=== PATIENT | female | born 1955 | race Caucasian/White ===

== ENCOUNTER 2025-03-16 07:56 | Emergency (ER) | payer OTHER, SELFPAY ==
[2025-03-16 08:00] VITALS: BP 148/81
[2025-03-16 08:32] VITALS: BMI 38.5
[2025-03-16] MEDS: ZOFRAN 4 MG IV (08:46)
[2025-03-16] MEDS: TORADOL 15 MG IV ×2 (08:46→13:13)
[2025-03-16] MEDS: NSS 1000 IV (08:47)
[2025-03-16 08:51] LABS: Hematocrit 38.9 % (37.0-47.0); Hemoglobin 13.4 g/dL (12.0-16.0); Mean Corp Hgb Conc. 34.4 g/dL (33.0-37.0); Mean Corpuscular Volume 82.6 fL (81.0-99.0); Nucleated Red Blood Cells % 0 %; Platelet Count 269 10^3/uL (130-400); Red Cell Dist. Width 13.0 % (11.5-14.5)
[2025-03-16 08:58] LABS: Urine Character Cloudy (Clear)
[2025-03-16 09:17] LABS: ALT (SGPT) 28 U/L (0-35); AST (SGOT) 22 U/L (14-36); Albumin 4.2 g/dl (3.5-5.0); Alkaline Phosphatase 65 U/L (38-126); Blood Urea Nitrogen 20 mg/dl (7-17); Calcium 9.7 mg/dl (8.4-10.2); Carbon Dioxide 26 mmol/L (22-30); Chloride 105 mmol/L (98-107); Estimated Creatinine Clearance 106 ml/min; Glucose 227 mg/dl (70-99); Potassium 4.4 mmol/L (3.5-5.1); Sodium 138 mmol/L (135-145); Total Protein 6.6 g/dl (6.3-8.2); eGFR > 60.00
--- NOTE | 2025-03-16 09:23 | ED.GENMED ---
History of Present Illness
General
Chief Complaint: Abdominal Pain
Source: patient
Exam Limitations: none
Time Seen by Provider: 03/16/25 08:05
Nursing documentation reviewed up to this point in time: agreed with
History of Present Illness
History of Present Illness:
The patient is a 69-year-old female with a history NIDDM, HtN, hypothyroid, kidney stones who presents with pain initially left groin yesterday but today is in the right groin. She notes dark urine.
She describes the pain as alternating initially starting on one side of the groin and then moving to the other side. The pain began yesterday afternoon and has persisted through the night, with a current severity of 7-8 out of 10. She took two
Advil 400 mg 3 AM, but reports minimal relief. The pain is now moving intermittently and is unusual for her past kidney stone experiences. She had urine frequency throughout the night. Has felt nauseous but no nausea currently, no vomiting. Prior
kidney stones approximately 10 years ago. Denies f/c/d/c
Past History
Past History
ED Past Medical History: HTN, NIDDM and Hypothyroidism
ED Past Surgical History: Cholecystectomy, , Gynecological, Orthopedic and Tonsilectomy
Social History
Tobacco: Non-smoker
Alcohol: None
Personal: Single
Living: alone
Employment: Employed
Review of Systems
Review of Systems
Allergies reviewed?: Yes
All Other Systems: ROS reviewed and negative except as documented in HPI and ROS
Constitutional: Denies fever or chills
Respiratory: Denies trouble breathing
Cardiac: Denies chest pain
ABD/GI: Reports nausea; Denies abdominal pain, vomiting or diarrhea
: Reports frequency and dark urine
Musculoskeletal: Denies edema
Skin: Reports no symptoms
Neurological: Reports no symptoms
Phy Exam
Physical Exam
Physical Exam:
GENERAL: No acute distress. A&Ox3.
CONSTITUTIONAL: Afebrile.
EYES: clear, conjunctivae normal
ENMT: moist mucus membranes, Pharynx nl
RESPIRATORY: Regular respirations, nonlabored, lungs clear.
CARDIOVASCULAR: Regular rate and rhythm, no murmurs, no rubs.
GI: Soft, morbidly obese, nontender, normal BS
MUSCULOSKELETAL: Moves with ease. Well perfused.
SKIN: Warm, dry, pink
PSYCH: Normal mood and affect. Well kept, interactive and appropriate
NEUROLOGIC: Awake, alert and oriented. No focal neurological deficits
Course
Orders/Labs/Results
Orders:
Orders
03/16/25 08:27
0.9% Sodium Chloride 1000 ml [Nss] 1,000 ml IV BOLUS
Ketorolac [Toradol] 15 mg IV NOW STA
Ondansetron Injectable [Zofran] 4 mg IV NOW STA
03/16/25 08:42
Complete Blood Count/With Diff Urgent
Comprehensive Metabolic Panel Urgent
Urinalysis Reflex To Culture Urgent
Date Specimen was Collected: 03/16/25
Time Specimen was Collected: 08:34
Urine Microscopic Reflex Cult Urgent
Urine Culture Urgent
JUANCARLOS Source: U
Specimen Description:
Date Specimen was Collected: 03/16/25
Time Specimen was Collected: 08:34
03/16/25 10:03
CT Abd/pel Without Iv Or Oral Urgent
Comment:
Reason For Exam: L then R groin pain, hematuria
03/16/25 13:11
Ketorolac [Toradol] 15 mg IV NOW STA
03/16/25 13:12
Ketorolac [Toradol] 15 mg .ROUTE .STK-MED ONE
Abnormal Lab Results
03/16/25
08:42
MPV 10.5 H fL
(7.4-10.4)
BUN 20 H mg/dl
(7-17)
Glucose 227 H mg/dl
(70-99)
Ur Occult Blood Reflex 4+ A
(Negative)
Leukocyte Esterase Rfl 1+ A
(Negative)
Urine RBC >100 A /HPF
(0-2)
Urine Bacteria (Reflex) Many A
(Negative)
Urine Glucose 3+ A
(Negative)
Urine Albumin (Reflex) 2+ A
(Neg - Trace)
03/16/25 08:42
03/16/25 08:42
Vital Signs
Initial and Last Documented VS:
Initial Vital Signs
Temp Pulse Resp BP Pulse Ox
98.2 F 72 18 148/81 98
03/16/25 08:00 03/16/25 08:00 03/16/25 08:00 03/16/25 08:00 03/16/25 08:00
Last Documented Vital Signs
Temp Pulse Resp BP Pulse Ox
98.2 F 80 20 116/63 95
03/16/25 08:00 03/16/25 14:00 03/16/25 14:00 03/16/25 14:00 03/16/25 14:00
MDM/Problems Addressed
Differential Diagnosis Includes:
Kidney stone, UTI, pyelonephritis
MDM/Problems Addressed:
The patient is a 69-year-old female with a history NIDDM, HtN, hypothyroid, kidney stones who presents with pain initially left groin yesterday but today is in the right groin. She notes dark urine.
She describes the pain as alternating initially starting on one side of the groin and then moving to the other side. The pain began yesterday afternoon and has persisted through the night, with a current severity of 7-8 out of 10. She took two
Advil 400 mg 3 AM, but reports minimal relief. The pain is now moving intermittently and is unusual for her past kidney stone experiences. She had urine frequency throughout the night. Has felt nauseous but no nausea currently, no vomiting. Prior
kidney stones approximately 10 years ago. Denies f/c/d/c
Afebrile, NAD
Plan: - Order basic blood work and urinalysis.
- Administer intravenous fluids and Zofran for nausea.
- Administer Toradol for pain relief.
- Monitor patients response to treatment and consider stronger analgesics if necessary.
- CT abd/pelvis plain
9:30 AM:
CBC normal
CMP unremarkable
U/A: no infection
1:15 p.m.
Re medicated for pain at pt request
CT showing 3 mm stone in proximal ureter w mild hydro
Pt OOB and sitting in chair, requesting to go home. Appears in no distress
She will f/u with Urology. Return instructions reviwed. I did explain that the stone is high up and she may have significant pain as it passes.
Rx for Flomax and [place] sent to her pharmacy, she states she thinks Ibuprofen should be sufficient.
Patient ambulated out with normal gait at discharge
*Pulse Oximetry
SaO2: 98
Oxygen Mode of Delivery: Room air
Patient hypoxic: not evaluated
*Critical Care Note
Total Time (30-74mins, 75-104mins- exclusive of procedures): Not Applicable
ED Attending Note
-
Portions of this chart may have been created with voice recognition software.� Occasional wrong word or��sound alike� substitutions may have occurred due to the inherent limitations of voice recognition software.
Discharge Plan
Departure
Patient Disposition: Home (Routine Discharge)
Date of Disposition: 03/16/25
Time of Disposition: 13:59
Patient with high blood pressure during this ER visit?: No
Condition: Good
Discharge Problem:
Calculus of proximal right ureter
Instructions: Kidney Stones (DC)
Prescriptions:
New
hydrocodone-acetaminophen 5-325 mg tablet
1 tab PO Q6H PRN (Reason: Pain) Qty: 10 0RF
tamsulosin [Flomax] 0.4 mg capsule
0.4 mg PO DAILY Qty: 5 0RF
Referrals:
Edward Alfaro MD [Active, Urology] - Call in 1-3 days for appt
Ranulfo Whittaker CRNP [Family Provider, Family Practice]
Activity Restrictions/Additional Instructions:
As we discussed, ibuprofen 600 mg, with food, every 6 hours as needed for mild to moderate pain and I sent a prescription to your pharmacy for hydrocodone which is Salem to use for worse pain.
I also sent a prescription to your pharmacy for Flomax, started today and take for 5 days
Call the urology doctors office today and make next available appointment.
Return here immediately for fever, chills, repeated vomiting or worsening pain or feeling sicker in any way
Interventions
Interventions:
*Risk Screen - Suicide Last Done: 03/16/25 08:00
*General Assessment Last Done: 03/16/25 08:00
*Neglect/Abuse Screening Last Done: 03/16/25 08:00
*ED- Fall Risk Assessment Last Done: 03/16/25 14:10
*ED COVID-19 Vaccine History Last Done: 03/16/25 08:33
*Nursing Disposition Last Done: 03/16/25 14:10
UR-Mfjcvt-Dmnndohwii Assessment Last Done: 03/16/25 10:21
ED-Female Genitourinary Assessment Last Done: 03/16/25 10:21
Discharge Date and Time
Discharge Date/Time: 03/16/25 14:10
Print Language: SWEDISH
[2025-03-16 09:55] LABS: Urine Red Blood Cell >100 /HPF (0-2)
[2025-03-16 09:57] LABS: Urine White Cell 0-2 /HPF (0-5)
[2025-03-16 10:33] VITALS: BP 126/63
[2025-03-16 12:22] VITALS: BP 112/64
[2025-03-16 12:23] VITALS: BP 119/73; BP 124/66
[2025-03-16 14:00] VITALS: BP 116/63
== END 2025-03-16 14:10 | disposition home or self-care (01) ==
LOC: EMR 07:56
PROVIDERS: Registered Nurse; EMERGENCY PHYSICIAN Emergency Medicine; FAMILY PHYSICIAN Nurse Practitioner Family
DX: R10.9 Unspecified abdominal pain (principal); E11.9 Type 2 diabetes mellitus without complications; I10 Essential (primary) hypertension; E03.9 Hypothyroidism, unspecified; Z87.442 Personal history of urinary calculi; Z90.49 Acquired absence of other specified parts of digestive tract; N13.2 Hydronephrosis with renal and ureteral calculous obstruction
CPT/HCPCS: 99284; 96374; 96375; 96376; 96361; 74176; 80053; 81003; 81015; 85025; 87086

== ENCOUNTER → 2025-04-30 14:03 | Outpatient (REF) | payer OTHER, SELFPAY | LOC: HWRAD 14:03 | PROVIDERS: ATTENDING PHYSICIAN Urology; FAMILY PHYSICIAN Nurse Practitioner Family | DX: N20.0 Calculus of kidney (principal) | CPT/HCPCS: 74176 ==

== ENCOUNTER 2025-06-10 12:34 | Day surgery (SDC) | payer OTHER, SELFPAY ==
[2025-06-10] VITALS (8 sets, daily range): BP systolic 117–135; BP diastolic 60–73; BMI 39.1; BMI 38.8
--- NOTE | 2025-06-10 09:23 | ED.GENMED ---
History of Present Illness
<WELLINGTON Ness - Last Filed: 06/10/25 12:14>
General
Chief Complaint: Abdominal Pain
Source: patient
Exam Limitations: none
Time Seen by Provider: 06/10/25 09:21
Nursing documentation reviewed up to this point in time: agreed with
History of Present Illness
History of Present Illness:
Patient is a 69-year-old female who with known centimeter 7 left kidney stone scheduled for surgery tomorrow. She reports she has had pain since last night and has not been able to sleep. She did take Advil around 630 morning. She did call
[facility]. Previous CAT scan reviewed from April 30 shows a 7 mm left renal pelvis stone
Past History
<WELLINGTON Ness - Last Filed: 06/10/25 12:14>
Past History
ED Past Medical History: HTN, NIDDM and Hypothyroidism
ED Past Surgical History: Cholecystectomy, , Gynecological, Orthopedic and Tonsilectomy
Social History
Tobacco: Non-smoker
Alcohol: None
Personal: Single
Living: alone
Employment: Employed
Phy Exam
<WELLINGTON Ness - Last Filed: 06/10/25 12:14>
General Physical Exam
General Presentation: no apparent distress
General age: appears stated age
General Skin: warm and dry
General Habitus: normal
General Mental: alert
General Hydration: appears well hydrated
Course
<WELLINGTON Ness - Last Filed: 06/10/25 12:14>
Orders/Labs/Results
Orders:
Orders
06/10/25 09:31
CBC/With Diff [Complete Blood Count/With Diff] Urgent
Comprehensive Metabolic Panel Urgent
Urinalysis Reflex To Culture Urgent
Date Specimen was Collected: 06/10/25
Time Specimen was Collected: 09:30
Urine Microscopic Reflex Cult Urgent
06/10/25 09:38
CT Abd/pel Without Iv Or Oral Urgent
Comment:
Reason For Exam: left flank pain
06/10/25 09:41
0.9% Sodium Chloride 1000 ml [Nss] 1,000 ml IV BOLUS
06/10/25 09:43
Morphine Sulfate 2 mg IV NOW STA
06/10/25 11:22
Morphine Sulfate 4 mg IV NOW STA
06/10/25 12:11
HYDROmorphone [Dilaudid] 0.5 mg IV NOW STA
Ondansetron Injectable [Zofran] 4 mg IV NOW STA
06/11/25 07:00
CeFAZolin 2 GRAM [Ancef] 2 grams in 10 ml IV PRE PROCEDURE
Normosol (Mult Electrolytes) [Normosol-R/Plasmalyte-A] 1,000 ml IV 50 mls/hr
Abnormal Lab Results
06/10/25
09:31
Glucose 256 H mg/dl
(70-99)
Ur Occult Blood Reflex 4+ A
(Negative)
Urine RBC 16-20 A /HPF
(0-2)
Urine Bacteria (Reflex) Few A
(Negative)
Urine Glucose 3+ A
(Negative)
06/10/25 09:31
06/10/25 09:31
Vital Signs
Initial and Last Documented VS:
Initial Vital Signs
Temp Pulse Resp BP Pulse Ox
98.2 F 87 22 128/60 97
06/10/25 09:13 06/10/25 09:13 06/10/25 09:13 06/10/25 09:13 06/10/25 09:13
Last Documented Vital Signs
Temp Pulse Resp BP Pulse Ox
97.5 F 81 20 117/68 98
06/10/25 11:31 06/10/25 11:31 06/10/25 11:31 06/10/25 11:28 06/10/25 11:29
Parole Director consulted with Physician
Parole Director consulted with physician?: Yes
Name of Physician Consulted: DR celaya
<Kade Celaya, DO - Last Filed: 06/10/25 12:13>
Orders/Labs/Results
Orders:
Orders
06/10/25 09:31
CBC/With Diff [Complete Blood Count/With Diff] Urgent
Comprehensive Metabolic Panel Urgent
Urinalysis Reflex To Culture Urgent
Date Specimen was Collected: 06/10/25
Time Specimen was Collected: 09:30
Urine Microscopic Reflex Cult Urgent
06/10/25 09:38
CT Abd/pel Without Iv Or Oral Urgent
Comment:
Reason For Exam: left flank pain
06/10/25 09:41
0.9% Sodium Chloride 1000 ml [Nss] 1,000 ml IV BOLUS
06/10/25 09:43
Morphine Sulfate 2 mg IV NOW STA
06/10/25 11:22
Morphine Sulfate 4 mg IV NOW STA
06/10/25 12:11
HYDROmorphone [Dilaudid] 0.5 mg IV NOW STA
Ondansetron Injectable [Zofran] 4 mg IV NOW STA
06/11/25 07:00
CeFAZolin 2 GRAM [Ancef] 2 grams in 10 ml IV PRE PROCEDURE
Normosol (Mult Electrolytes) [Normosol-R/Plasmalyte-A] 1,000 ml IV 50 mls/hr
Abnormal Lab Results
06/10/25
09:31
Glucose 256 H mg/dl
(70-99)
Ur Occult Blood Reflex 4+ A
(Negative)
Urine RBC 16-20 A /HPF
(0-2)
Urine Bacteria (Reflex) Few A
(Negative)
Urine Glucose 3+ A
(Negative)
06/10/25 09:31
06/10/25 09:31
Vital Signs
Initial and Last Documented VS:
Initial Vital Signs
Temp Pulse Resp BP Pulse Ox
98.2 F 87 22 128/60 97
06/10/25 09:13 06/10/25 09:13 06/10/25 09:13 06/10/25 09:13 06/10/25 09:13
Last Documented Vital Signs
Temp Pulse Resp BP Pulse Ox
97.5 F 81 20 117/68 98
06/10/25 11:31 06/10/25 11:31 06/10/25 11:31 06/10/25 11:28 06/10/25 11:29
<WELLINGTON Ness - Last Filed: 06/10/25 12:14>
MDM/Problems Addressed
Differential Diagnosis Includes:
Not limited to renal colic
MDM/Problems Addressed:
As documented patient is a 69-year-old female who is scheduled for surgery tomorrow for a 7 mm renal stone. Patient complains increasing pain. CAT scan today shows a 4 mm left UVJ stone causing mild left hydro and hydroureter there is 1.8 cm
nonobstructing left renal stone this previously appears smaller than left UPJ. Patient was medicated here however still complaining of discomfort. Urology made aware we will plan for admission for pain control in OR tomorrow. Case discussed with
ED physician.
Chronic conditions affecting care:
htn , niddm
<WELLINGTON Ness - Last Filed: 06/10/25 12:14>
*Radiology
Radiology exam reviewed: radiology read reviewed
*Pulse Oximetry
SaO2: 98
Oxygen Mode of Delivery: Room air
Patient hypoxic: no
*Critical Care Note
Total Time (30-74mins, 75-104mins- exclusive of procedures): Not Applicable
ED Attending Note
<WELLINGTON Ness - Last Filed: 06/10/25 12:14>
-
Portions of this chart may have been created with voice recognition software.� Occasional wrong word or��sound alike� substitutions may have occurred due to the inherent limitations of voice recognition software.
<Kade Celaya DO - Last Filed: 06/10/25 12:13>
ED Attending Note
Patient seen and examined by attending physician: Yes
ED Attending Note:
I reviewed and agree with history and treatment plan by Lay Oliva. My exam revealed
69-year-old female appears somewhat uncomfortable no respiratory distress will admit for surgery on left ureteral calculus.
Discharge Plan
Departure
Patient Disposition: Admit
Date of Disposition: 06/10/25
Time of Disposition: 12:11
Admit to: Med/Surg
Admit to doctor: hospitalist
Presentation/result/management discussed w/ accepting MD/DO: Hospitalist
Patient with high blood pressure during this ER visit?: Yes
Condition: Fair
Covid-19: Not Applicable
Discharge Problem:
Renal colic on left side
Prescriptions:
No Action
latanoprost 0.005 % Drops
1 drp BOTH EYES HS
fexofenadine [Nicci] 60 mg Tablet
60 mg PO DAILY
glimepiride 2 mg Tablet
2 mg PO DAILY
pravastatin 10 mg Tablet
10 mg PO TUTH
levothyroxine [Synthroid] 50 mcg Tablet
50 mcg PO DAILY
metformin 1,000 mg Tablet
1,000 mg PO BID
lisinopril 10 mg Tablet
10 mg PO DAILY
ibuprofen [Advil] 200 mg Tablet
400 mg PO BID
timolol maleate 0.5 % Drops
1 drp BOTH EYES DAILY
cholecalciferol (vitamin D3) [Vitamin D3] 25 mcg (1,000 unit) Capsule
25 mcg PO DAILY
Januvia 100 mg Tablet
100 mg PO DAILY
coQ10 (ubiquinol) 100 mg Capsule
100 mg PO DAILY
magnesium
1 cap PO DAILY
alprazolam [Xanax] 0.25 mg Tablet
0.125 mg PO PRN PRN (Reason: anxiety )
Referrals:
Ranulfo Whittaker CRNP [Family Provider, Family Practice]
Interventions
Interventions:
*Risk Screen - Suicide Last Done: 06/10/25 09:20
*General Assessment Last Done: 06/10/25 09:20
*Neglect/Abuse Screening Last Done: 06/10/25 09:20
*ED- Fall Risk Assessment Last Done: 06/10/25 09:20
*ED COVID-19 Vaccine History Last Done: 06/10/25 09:20
FT-Dsecar-Nrackkhnzk Assessment Last Done: 06/10/25 09:20
Discharge Date and Time
Print Language: BELARUSIAN
[2025-06-10 09:40] LABS: Urine Character Clear (Clear)
[2025-06-10 09:41] LABS: Hematocrit 39.5 % (37.0-47.0); Hemoglobin 13.4 g/dL (12.0-16.0); Mean Corp Hgb Conc. 33.9 g/dL (33.0-37.0); Mean Corpuscular Volume 83.5 fL (81.0-99.0); Nucleated Red Blood Cells % 0 %; Platelet Count 276 10^3/uL (130-400); Red Cell Dist. Width 12.7 % (11.5-14.5)
[2025-06-10] MEDS: NSS 1000 IV (09:49)
[2025-06-10] MEDS: MORPHINE SULFATE 2 MG IV (09:49)
[2025-06-10 09:51] LABS: Urine Red Blood Cell 16-20 /HPF (0-2); Urine White Cell 0-2 /HPF (0-5)
[2025-06-10 10:01] LABS: ALT (SGPT) 26 U/L (0-35); AST (SGOT) 20 U/L (14-36); Albumin 4.2 g/dl (3.5-5.0); Alkaline Phosphatase 62 U/L (38-126); Blood Urea Nitrogen 17 mg/dl (7-17); Calcium 9.8 mg/dl (8.4-10.2); Carbon Dioxide 27 mmol/L (22-30); Chloride 103 mmol/L (98-107); Estimated Creatinine Clearance 72 ml/min; Glucose 256 mg/dl (70-99); Potassium 3.9 mmol/L (3.5-5.1); Sodium 138 mmol/L (135-145); Total Protein 6.7 g/dl (6.3-8.2); eGFR > 60.00
[2025-06-10] MEDS: MORPHINE SULFATE 4 MG IV (11:27)
--- NOTE | 2025-06-10 12:22 | HPS.HSE ---
Family Physician
-
Family Physician: WELLINGTON Frazier
Chief Complaint
-
Left flank to left lower quadrant abdominal pain with known renal calculi
History of Present Illness
69-year-old female with known history of left kidney calculi who is scheduled for surgery tomorrow 06/11/2025 however she reports last night increased abdominal pain left flank to left lower quadrant with inability to sleep. She did attempt to take
Advil this morning but with no relief. She was referred to the ER by her urologist Dr. Alfaro. She had prior CT showing 7 mm left renal pelvis stone however today showing 4 mm left UVJ stone causing mild left hydronephrosis and hydroureter.
Patient reports eating toast today and taking all of her medications including diabetic meds. She has past medical history of hypertension, DM 2, HLD, hypothyroidism, anxiety, class II obesity.
Medical History
Past Medical History
Past Medical History: Reports Other
Additional Past Medical History:
hypertension
DM 2
HLD
hypothyroidism
anxiety
Class II obesity
Past Surgical History: Reports Other
Additional Past Surgical History:
Cholecystectomy
Tonsillectomy
Social History
Tobacco: Non-smoker
Alcohol: Occasional (Holidays)
Drug: None
Personal: Single
Living: With Family
Employment: Retired
Family History
Family History: Not pertinent
Allergies / Home Medications
Allergies reflects when Allergies were last updated in [facility].
Home Medications with original date entered in [facility]
Allergy/Medication List:
Allergies
Allergy/AdvReac Type Severity Reaction Status Date / Time
hydrocodone Allergy didn't Verified 06/04/25 12:53
feel well,
N/V
Home Medications
alprazolam 0.25 mg tablet (Xanax) 0.125 mg PO PRN PRN anxiety 06/04/25
cholecalciferol (vitamin D3) 25 mcg (1,000 unit) capsule (Vitamin D3) 25 mcg PO DAILY 06/04/25
coQ10 (ubiquinol) 100 mg capsule 100 mg PO DAILY 06/04/25
fexofenadine 60 mg tablet 60 mg PO DAILY 06/04/25
glimepiride 2 mg tablet 2 mg PO DAILY 06/04/25
ibuprofen 200 mg tablet (Advil) 400 mg PO BID 06/04/25
latanoprost 0.005 % eye drops 1 drp BOTH EYES HS 06/04/25
levothyroxine 50 mcg tablet (Synthroid) 50 mcg PO DAILY 06/04/25
lisinopril 10 mg tablet 10 mg PO DAILY 06/04/25
magnesium 1 cap PO DAILY 06/04/25
metformin 1,000 mg tablet 1,000 mg PO BID 06/04/25
pravastatin 10 mg tablet 10 mg PO TUTH 06/04/25
sitagliptin phosphate 100 mg tablet (Januvia) 100 mg PO DAILY 06/04/25
timolol maleate 0.5 % eye drops 1 drp BOTH EYES DAILY 06/04/25
Review of Systems
-
History Source: Patient and Family
A 12 point ROS was completed and negative except as noted: Yes
Constitutional: Denies Fever or Chills
EENT: Denies Tearing or Sore Throat
Respiratory: Denies Cough or Trouble Breathing
Cardiac: Denies Chest Pain, Diaphoresis, Palpitations or Syncope
Abdomen/GI: Reports Abdominal Pain (Left side radiating around to left lower quadrant) and Nausea; Denies Vomiting, Diarrhea or Constipated
: Reports Flank Pain (Left flank); Denies Dysuria, Frequency or Incontinence
Musculoskeletal: Denies Joint Pain or Edema
Skin: Denies Itching or Rash
Neurological: Denies Dizzy, Headache or Weakness
Endocrine: Reports No Symptoms
Hematologic/Lymphatic: Reports No Symptoms
Psych: Reports Calm
Physical Exam
Vital Signs
Vital Signs
Temp Pulse Resp BP Pulse Ox
97.5 F 81 20 117/68 98
06/10/25 11:31 06/10/25 11:31 06/10/25 11:31 06/10/25 11:28 06/10/25 11:29
Physical Exam
General: Pain and Morbidly Obese; No Fever or Chills
HEENT: NormoCephalic, Anicteric, Moist mucous membranes, Atraumatic, PERRLA, [place] Conjunctivae and No Ptosis
Respiratory: Clear; No Wheezes, Rales or Rhonchi
Cardiac: S1/S2 and Regular Rhythm; No Murmur, Rub, Gallop or Peripheral Edema
Breast: Deferred by me
GI: Soft, Non Distended, Normal Bowel Sounds and Tender (Left flank to left lower quadrant)
Rectal: Deferred by Provider
Genito-urinary: No costovertebral tender
Musculoskeletal: No Clubbing, No Cyanosis and No Edema
Skin: Warm and Dry; No Rash or Jaundice
Neuro: AO x 3, No Motor Deficits, Nonfocal/grossly intact, Cranial Nerves Intact and No Sensory Deficits; No Slurred Speech, Facial Droop or Tremors
Psych: Calm
Laboratory Results
-
06/10/25 09:31
06/10/25 09:31
Laboratory Results
Total Bilirubin 0.4 mg/dl (0.2-1.3) 06/10/25 09:31
AST 20 U/L (14-36) 06/10/25 09:31
ALT 26 U/L (0-35) 06/10/25 09:31
Alkaline Phosphatase 62 U/L (38-126) 06/10/25 09:31
Data Reviewed
-
CT Scan: Report Reviewed by me
Lab Data: Labs Reviewed by me
Impression/Plan
-
Impression/plan:
Admit to [facility]
Left UVJ stone with mild left hydronephrosis/hydrourete
Known 7 mm left renal pelvis stone
- Consult urology�seen at bedside by Dr. Alfaro
- Plan for OR in a.m. 06/11/2025 with lithotripsy and stent placement
-Strain urine
-Okay for food today as tolerated
-N.p.o. after midnight
- IV pain control Tylenol, Toradol, Dilaudid
-IV Zofran
-IV NSS
- Follow CBC, CMP
CT abdomen pelvis without contrast:
1. 4 mm left UVJ stone causing mild left hydronephrosis and hydroureter. New
2. 1.8 cm nonobstructing left renal stone. This previously appeared smaller and was in
the left UPJ.
3. Complex hepatic cyst. Stable.
4. Mild diverticulosis. Stable
5. Mild pancreatic fatty infiltration. Stable
#DM 2
Blood sugar 256 check HgbA1c
Accu-Cheks with SSI
-Hold metformin, Januvia, glimepiride 2 mg daily-patient took this a.m. 06/10/2025
#HTN
BP 117/68
-Continue lisinopril 10 mg daily
#HLD
-Continue pravastatin 10 mg Saturday
#Hypothyroidism
-Continue levothyroxine 50 mcg p.o. daily
#Anxiety
Continue Xanax 0.125 mg p.o. as needed
#Class II obesity�BMI 39
Affects all aspects of care
DVT prophylaxis
SCDs
Full code
[2025-06-10] MEDS: DILAUDID 0.5 MG IV (12:31)
[2025-06-10] MEDS: ZOFRAN 4 MG IV ×2 (12:31→18:25)
[2025-06-10] MEDS: NORMOSOL-R/PLASMALYTE-A 1000 IV ×2 (12:39→23:08)
--- NOTE | 2025-06-10 13:02 | W.PN.UPDATE ---
Update Note
Progress Note Update
This is an addendum to H&P written by SENIOR TRAINING SPECIALIST Amina Hu
I saw and examined the patient.
The SENIOR TRAINING SPECIALIST's note was reviewed and I agree with the note.
Comment:
Ms. Angela Buchanan is a 69 yo woman with hx essential HTN, HLD, hypothyroidism, DM II, known left renal calculi scheduled for surgery tomorrow presents with significant left flank pain.
Triage VS: T 98.2, P 87, RR 22, BP 128/60, SpO2 97%
On exam patient is AAO x 3, no acute distress; CV: S1, S2, RRR; Chest clear, no LE swelling
LABS: WBC 6.5, Hg 13.4, PLT 276, Na 138, K+ 3.9, Cr 0.9, Glucose 256
CT A/P
IMPRESSION: 4 mm left UVJ stone causing mild left hydronephrosis and hydroureter. New
1.8 cm nonobstructing left renal stone. This previously appeared smaller and was in the left UPJ.
Complex hepatic cyst. Stable.
Mild diverticulosis. Stable
Mild pancreatic fatty infiltration. Stable
Obstructing Nephrolithiasis
-admit to med/surg
-IVF
-pain control, add on IV Toradol PRN
-strain urine
Essential HTN
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
DM II
-hold BOWLING ALLEY REFINISHER Metformin, Januvia, Glimepiride
-ISS low
DVT PPx SCD
FULL CODE
--- NOTE | 2025-06-10 13:06 | EDCM ---
CM reviewed chart and met with pt bedside in ED. Lives alone in 1 story apartment. Independent in ADLs, personal care and ambulation at baseline. No assistive devices.
Is scheduled for surgery to remove kidney stone tomorrow.
RIDDLE reviewed and signed, copy given to patient.
Confirms prescription coverage.
No hx VN or SNF
PCP: Ranulfo Whittaker
Pharmacy: [facility]
Anticipate home, no needs. CM will continue to follow for all discharge planning needs.
[2025-06-10] MEDS: TORADOL 15 MG IV ×2 (14:02→20:07)
[2025-06-10 16:33] LABS: Glucose - Point of Care 193 mg/dl (70-99)
[2025-06-10] MEDS: XALATAN OPHTHALMIC SOLUTION 1 DROP BOTH EYES (21:33)
[2025-06-10 21:38] LABS: Glucose - Point of Care 184 mg/dl (70-99)
[2025-06-11] VITALS (10 sets, daily range): BP systolic 110–160; BP diastolic 53–84; BMI 38.8
[2025-06-11] MEDS: TORADOL 15 MG IV (04:29)
[2025-06-11] MEDS: SYNTHROID 50 MCG PO (05:27)
[2025-06-11 05:47] LABS: Hematocrit 35.2 % (37.0-47.0); Hemoglobin 12.1 g/dL (12.0-16.0); Mean Corp Hgb Conc. 34.4 g/dL (33.0-37.0); Mean Corpuscular Volume 81.5 fL (81.0-99.0); Nucleated Red Blood Cells % 0 %; Platelet Count 234 10^3/uL (130-400); Red Cell Dist. Width 12.7 % (11.5-14.5)
[2025-06-11 06:48] LABS: ALT (SGPT) 22 U/L (0-35); AST (SGOT) 18 U/L (14-36); Albumin 3.7 g/dl (3.5-5.0); Alkaline Phosphatase 50 U/L (38-126); Blood Urea Nitrogen 17 mg/dl (7-17); Calcium 8.6 mg/dl (8.4-10.2); Carbon Dioxide 24 mmol/L (22-30); Chloride 107 mmol/L (98-107); Estimated Creatinine Clearance 80 ml/min; Glucose 120 mg/dl (70-99); Potassium 3.8 mmol/L (3.5-5.1); Sodium 138 mmol/L (135-145); Total Protein 6.1 g/dl (6.3-8.2); eGFR > 60.00
[2025-06-11 08:07] LABS: Glycohemoglobin (HgbA1c) 7.8 % (4.0-5.6)
[2025-06-11 08:12] LABS: Glucose - Point of Care 143 mg/dl (70-99)
[2025-06-11] MEDS: TIMOPTIC 0.5% OPHTHALMIC SOLUTION 1 DROP BOTH EYES (09:13)
[2025-06-11 12:18] LABS: Glucose - Point of Care 131 mg/dl (70-99)
[2025-06-11] MEDS: NORMOSOL-R/PLASMALYTE-A 1000 IV (12:35)
--- NOTE | 2025-06-11 13:18 | W.PN.HOSP.TC ---
Today's Communication/Plan
-
Plan for OR today
Follow urology postop orders
Pain control better with Toradol
Assessment / Plan
Assessment / Plan
General: Resting in bed comfortably
HEENT: NormoCephalic, Anicteric, Moist mucous membranes, Atraumatic, , [place] Conjunctivae and No Ptosis
Respiratory: Clear; No Wheezes, Rales or Rhonchi
Cardiac: S1/S2 and Regular Rhythm; No Murmur, Rub, Gallop or Peripheral Edema
Breast: Deferred by me
GI: Soft, Non Distended, Normal Bowel Sounds and Tender (Left flank to left lower quadrant)
Rectal: Deferred by Provider
Genito-urinary: No costovertebral tender
Musculoskeletal: No Clubbing, No Cyanosis and No Edema
Skin: Warm and Dry; No Rash or Jaundice
Neuro: AO x 3, No Motor Deficits, Nonfocal/grossly intact, Cranial Nerves Intact and No Sensory Deficits; No Slurred Speech, Facial Droop or Tremors
Psych: Calm
#Left UVJ stone with mild left hydronephrosis/hydrourete
Plan for OR in a.m. 06/11/2025 with lithotripsy and stent placement
Strain urine
IV pain control Tylenol, Toradol,
IV Zofran
IV NSS
#DM 2
Accu-Cheks with SSI
Hold metformin, Januvia, glimepiride 2 mg daily-patient took a.m. 06/10/2025
A1C 7.8
#HTN
Continue lisinopril 10 mg daily
#HLD
Continue pravastatin 10 mg Saturday
#Hypothyroidism
Continue levothyroxine 50 mcg p.o. daily
#Anxiety
Continue Xanax 0.125 mg p.o. as needed
#Class II obesity�BMI 39
Affects all aspects of care
DVT prophylaxis
SCDs
Full code
Anticipated Discharge: > 48 hours
Subjective/Interval History
-
Date of Service: June 11, 2025
States of intermittent left-sided flank pain radiating to the groin
Objective Data
-
Labs:
Laboratory Results
06/11/25
05:38
WBC 7.2
Hgb 12.1
Hct 35.2 L
Plt Count 234
Sodium 138
Potassium 3.8
Chloride 107
Carbon Dioxide 24
BUN 17
Creatinine 0.8
Glucose 120 H
Calcium 8.6
Total Bilirubin 0.3
AST 18
ALT 22
Alkaline Phosphatase 50
Vital Signs:
Vital Signs
Temp Pulse Resp BP Pulse Ox
97.8 F 78 19 122/53 99
06/11/25 07:00 06/11/25 07:00 06/11/25 07:00 06/11/25 07:00 06/11/25 07:00
I&O
06/10/25 06/11/25 06/12/25
06:59 06:59 06:59
Intake Total 480 / 480
Output Total 50 / 50
Balance 480 / 480 -50 / -50
--- NOTE | 2025-06-11 15:21 | CM ---
VALERIE spoke with Angela Meeks this afternoon prior to her going for removal of kidney stone. She will return home at discharge with no needs.
CM will follow for any newly identified needs.
[2025-06-11 15:33] LABS: Glucose - Point of Care 119 mg/dl (70-99)
[2025-06-11 17:30] LABS: Glucose - Point of Care 125 mg/dl (70-99)
--- NOTE | 2025-06-11 17:44 | W.IMMPOSTOP ---
Surgical Immed Post Op Note
-
Primary Surgeon: Jonasfer
Assisting Surgeon: -
Pre-op Diagnosis: L renal stone
Post-op Diagnosis: same
Procedure Performed: L ULS
Anesthesia Type: general
Specimen / Cultures: stone
Estimated Blood Loss: none
Complications: none
Operative Findings: L renal stone fragmented, stent in place
Can be discharged to follow up for stent removal in 2 weeks
--- NOTE | 2025-06-11 17:45 | W.PN.UPDATE ---
Update Note
Progress Note Update
Stone removed without difficulty
Stable for discharge when comfortable
Urinary frequency to be expected with stent in place
Office will call to schedule stent removal in about 2 weeks
--- NOTE | 2025-06-11 20:00 | PTCARENOTE ---
Assumed care of patient from previous RN, patient returned during previous shift from OR following left ureteroscopy, laser lithotripsy, stone
extraction, and stent placement. Patient awake, alert and oriented, does not appear to be drowsy at this time. Reported that upon return patient was drowsy and 'out of it,' appears to be appropriate at this time. Patient has no complaints at this
time other than slight discomfort to lower abdomen - tylenol provided, see MAR. Patient ambulating in room, tolerating well. Finished dinner tray during rounding, tolerating meal without difficulty. Call barroso in reach, will ring for assist as
needed. Will monitor.
[2025-06-11] MEDS: TYLENOL 650 MG PO (20:42)
[2025-06-11] MEDS: NORMOSOL-R/PLASMALYTE-A IV (20:42)
[2025-06-11] MEDS: XALATAN OPHTHALMIC SOLUTION 1 DROP BOTH EYES (20:43)
[2025-06-12] VITALS: BP 132/64
[2025-06-12 00:45] LABS: Glucose - Point of Care 232 mg/dl (70-99)
[2025-06-12] MEDS: TYLENOL 650 MG PO (04:25)
[2025-06-12] MEDS: SYNTHROID 50 MCG PO (05:27)
[2025-06-12 08:28] LABS: Glucose - Point of Care 190 mg/dl (70-99)
[2025-06-12 08:41] VITALS: BP 136/69
[2025-06-12] MEDS: TIMOPTIC 0.5% OPHTHALMIC SOLUTION 1 DROP BOTH EYES (08:50)
[2025-06-12] MEDS: ZESTRIL 10 MG PO (08:55)
[2025-06-12] MEDS: AMARYL 2 MG PO (08:59)
[2025-06-12] MEDS: JANUVIA 100 MG PO (08:59)
--- NOTE | 2025-06-12 10:45 | W.PN.HOSP.TC ---
Today's Communication/Plan
-
dc home
Assessment / Plan
Assessment / Plan
General: Resting in bed comfortably
HEENT: NormoCephalic, Anicteric, Moist mucous membranes, Atraumatic, , [place] Conjunctivae and No Ptosis
Respiratory: Clear; No Wheezes, Rales or Rhonchi
Cardiac: S1/S2 and Regular Rhythm; No Murmur, Rub, Gallop or Peripheral Edema
Breast: Deferred by me
GI: Soft, Non Distended, Normal Bowel Sounds and Tender (Left flank to left lower quadrant)
Rectal: Deferred by Provider
Genito-urinary: No costovertebral tender
Musculoskeletal: No Clubbing, No Cyanosis and No Edema
Skin: Warm and Dry; No Rash or Jaundice
Neuro: AO x 3, No Motor Deficits, Nonfocal/grossly intact, Cranial Nerves Intact and No Sensory Deficits; No Slurred Speech, Facial Droop or Tremors
Psych: Calm
69-year-old female past medical history of hypertension, diabetes mellitus, hyperlipidemia, hypothyroidism, anxiety, obesity who is presented with severe left flank pain. Patient underwent imaging study which showed 1.8 cm nonobstructing left renal
stone. This previously appeared smaller and was in the left UPJ. Left UVJ stone with mild left hydronephrosis/hydrourete. Status post left ureteroscopy with laser lithotripsy stone extraction and stent placement. Follow-up stone identification and
management with urology. Stent removal follow-up with urology in 2 weeks.
#Left UVJ stone with mild left hydronephrosis/hydrourete
Status post left ureteroscopy with laser lithotripsy stone extraction and stent placement
Follow-up stone identification and management with urology
Stent removal follow-up with urology in 2 weeks
#DM 2
Accu-Cheks with SSI
Hold metformin, Januvia, glimepiride 2 mg daily-patient took a.m. 06/10/2025
A1C 7.8
#HTN
Continue lisinopril 10 mg daily
#HLD
Continue pravastatin 10 mg Saturday
#Hypothyroidism
Continue levothyroxine 50 mcg p.o. daily
#Anxiety
Continue Xanax 0.125 mg p.o. as needed
#Class II obesity�BMI 39
Affects all aspects of care
DVT prophylaxis
SCDs
Full code
More than 30 minutes spent in discharge including
Final examination of the patient
Summarizing hospital stay
Instructions for continuing care to all relevant caregivers
Preparation of discharge records, prescriptions, and referral forms
Total time spent (in minutes): 52
Anticipated Discharge: Today
Subjective/Interval History
-
Date of Service: June 12, 2025
no flank pain
Objective Data
-
Vital Signs:
Vital Signs
Temp Pulse Resp BP Pulse Ox
97.7 F 68 16 136/69 99
06/12/25 08:41 06/12/25 08:41 06/12/25 08:41 06/12/25 08:41 06/12/25 08:41
I&O
06/11/25 06/12/25 06/13/25
06:59 06:59 06:59
Intake Total 480 / 480 960 / 960
Output Total 50 / 50
Balance 480 / 480 910 / 910
--- NOTE | 2025-06-12 10:47 | W.DCSUMMARY ---
Discharge Summary
Discharge Data
Date of Admission: 06/10/25
Date of Discharge: 06/12/25
-
Pending Results: Yes
Additional Pending Results:
Renal stone identification
Hospital Course
69-year-old female past medical history of hypertension, diabetes mellitus, hyperlipidemia, hypothyroidism, anxiety, obesity who is presented with severe left flank pain. Patient underwent imaging study which showed 1.8 cm nonobstructing left renal
stone. This previously appeared smaller and was in the left UPJ. Left UVJ stone with mild left hydronephrosis/hydrourete. Status post left ureteroscopy with laser lithotripsy stone extraction and stent placement by Dr. Alfaro. Follow-up stone
identification and management with urology. Stent removal follow-up with urology in 2 weeks.
Discharge Plan
-
Patient Disposition: Home (Routine Discharge)
Discharge Diagnosis/Procedures: Left ureteral and renal stone s/p Left ureteroscopy, laser lithotripsy, stone extraction, stent placement.
Condition: Fair
Diet: Diabetic, Carb Controlled
Activity: As tolerated
Driving Restrictions: As prior to admission
Activity Restrictions/Additional Instructions:
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 Follow-up with primary doctor.
Referrals:
Edward Alfaro MD [Active, Urology] - in two weeks
Referral Note: call to make appt for stent removal. Follow-up renal stone identification and management
Ranulfo Whittaker CRNP [Family Provider, Family Practice] - in less than 1 week
Prescriptions:
Continued
latanoprost 0.005 % Drops
1 drp BOTH EYES HS
fexofenadine 60 mg Tablet
60 mg PO DAILY
glimepiride 2 mg Tablet
2 mg PO DAILY
pravastatin 10 mg Tablet
10 mg PO TUTH
levothyroxine [Synthroid] 50 mcg Tablet
50 mcg PO DAILY
metformin 1,000 mg Tablet
1,000 mg PO BID
lisinopril 10 mg Tablet
10 mg PO DAILY
ibuprofen [Advil] 200 mg Tablet
600 mg PO BIDPRN PRN (Reason: mild pain)
timolol maleate 0.5 % Drops
1 drp BOTH EYES DAILY
cholecalciferol (vitamin D3) [Vitamin D3] 25 mcg (1,000 unit) Capsule
25 mcg PO DAILY
Januvia 100 mg Tablet
100 mg PO DAILY
coQ10 (ubiquinol) 100 mg Capsule
100 mg PO DAILY
magnesium oxide 200 mg magnesium Tablet
200 mg PO QPM
alprazolam [Xanax] 0.25 mg Tablet
0.125 mg PO DAILYPRN PRN (Reason: anxiety )
Discharge Orders:
Discharge Patient (As Directed); Ordered 06/12/25
Ordered By: Domingo Urbano
Discharge Date and Time
Discharge Date/Time: 06/12/25 12:12
Print Language: [place]
[2025-06-12 12:08] VITALS: BP 159/85
--- NOTE | 2025-06-12 12:09 | W.PN.URO.CBU ---
Today's Communication / Plan
-
o/k for dc
Assessment / Plan
-
stable for d/c willcome to office for stetremoval 2- 3 weeks
Diagnosis
-
Date of Service: June 12, 2025
-
Patient Diagnosis:s/p lase stenting
Post Op Day:
Subjective
-
feels well
Objective
-
Vital Signs
Temp Pulse Resp BP Pulse Ox
98.0 F 69 16 159/85 97
06/12/25 12:08 06/12/25 12:08 06/12/25 12:08 06/12/25 12:08 06/12/25 12:08
Intake and Output
06/11/25 06/12/25 06/13/25
06:59 06:59 06:59
Intake Total 480 / 480 960 / 960
Output Total 50 / 50
Balance 480 / 480 910 / 910
Intake:
Oral fluids 480 / 480 960 / 960
Output:
Urine, Voided 50 / 50
Other:
Number of approximated MODERATE 1 5
amounts of urine
Laboratory Results
06/11/25 05:38
06/11/25 05:38
Review of Systems
-
: Frequency and Urgency
Physical Exam
-
General - well developed, well nourished, no acute distress
Chest - clear bilaterally
Abdomen - soft, non-tender, positive bowel sounds, no CVAT, no incisional pain or distention
Genitalia - normal
Rectal - normal
Skin - warm & dry with no rash
Neuro - AOx3, no motor deficits
Extremities - no clubbing, no cyanosis, no edema
Incision - clean, dry
Dressing - clean, dry, intact
Care Review
Data Reviewed
Discussed with: Nursing
CT Scan: Image Pers Reviewed
== END 2025-06-12 12:12 | disposition home or self-care (01) ==
LOC: SDS 12:34
PROVIDERS: Clinical Nurse Specialist Family Health; Nurse Practitioner; Student in an Organized Health Care Education/Training Program; Urology; CONSULT PHYSICIAN Surgery; EMERGENCY PHYSICIAN Emergency Medicine; FAMILY PHYSICIAN Nurse Practitioner Family
DX: N20.2 Calculus of kidney with calculus of ureter (principal)
CPT/HCPCS: 52356; 74176; 80053; 81003; 81015; 82365; 82962; 83036; 85025; 96361; 96374; 96375; 96376; 99284; C2617; G0378